=== PATIENT | female | born 1970 | race Hispanic/Latino ===

== ENCOUNTER 2018-12-16 12:29 | Observation (INO) | payer SELFPAY ==
[~2018-12-16 12:29] MED LIST: ISOVUE-370 76%-LOCM 1 ML ONE
--- NOTE | 2018-12-16 13:35 | RAD ---
EXAM: Chest 2 views: HISTORY: Cough and fever COMPARISON: None. FINDINGS: There is a normal-sized cardiomediastinal silhouette. There is no evidence of consolidation, mass, or pleural effusion. The bones are unremarkable. IMPRESSION: No evidence of acute cardiopulmonary disease
[2018-12-16 14:04] LABS: Bilirubin Negative (Negative); Blood, Urine Trace (Negative); Clarity CLOUDY (Clear); Glucose, Urine (Dipstick) >=1000 mg/dL (Negative); Leukocyte Small (Negative); Nitrite Negative (Negative); Protein, Urine (Dipstick) Trace mg/dL (Neg-Trace); Specific Gravity, Urine 1.035 (1.002-1.036); pH, Urine 5.5 (5.0-9.0)
[2018-12-16 14:07] LABS: #Eosinphils 0.1 thou/uL (0.0-0.7); #Lymphocytes 2.1 thou/uL (1.20-3.40); #Monocytes 0.7 thou/uL (0.11-0.59); #Neutrophils 6.7 thou/uL (1.40-6.50); %Basophils 0.4 % (0.0-1.0); %Eosinophils 0.6 % (0.0-10.0); %Monocytes 7.1 % (0.0-10.0); %Neutrophils 69.9 % (42.0-75.0); Mean Corpuscular HGB CONC 33.5 g/dL (32.0-36.0); Mean Corpuscular Hemoglobin 27.7 pg (27.0-31.0); Mean Corpuscular Volume 82.7 fL (78.0-98.0); Mean Platelet Volume 9.7 fL (7.4-10.4); Platelet Count 238 thou/uL (130-400); RBC Distribution Width 11.7 % (11.5-14.5); Red Blood Cell (RBC) Count 4.68 mill/uL (4.20-5.40); White Blood Cell (WBC) Count 9.6 thou/uL (4.8-10.8)
[2018-12-16 14:14] LABS: Pregnancy Test - Urine (BHCG) Negative (Negative); Pregu Control Background? CLEAR/WHITE (CLR/WHITE); Pregu Control Bar Appear? YES (CONTROL BAR); Specific Gravity 1.035 (1.002-1.036)
[2018-12-16 14:20] LABS: WBC/HPF 21-50 HPF (0-3)
[2018-12-16 14:21] LABS: Bacteria/HPF 4+ HPF (None Seen); Hyaline Casts/LPF NONE SEEN LPF (0-3 Hyaline); Yeast-All Forms 1+ HPF (None Seen)
[2018-12-16 14:32] LABS: ALT (SGPT) 12 U/L (8-55); AST (SGOT) 9 U/L (5-34); Albumin 3.8 g/dL (3.5-5.0); Alkaline Phosphatase 87 U/L (40-150); Anion Gap 14 mmol/L (10-20); BUN (Urea Nitrogen) 7 mg/dL (7.0-18.7); Bilirubin, Total 0.8 mg/dL (0.2-1.2); Calc. Creatinine Clearance 0 mL/min (70-130); Calcium 9.7 mg/dL (7.8-10.44); Carbon Dioxide 22 mmol/L (22-29); Chloride 97 mmol/L (98-107); Estimated GFR-MDRD 78; Globulin 4.9 g/dL (2.4-3.5); Glucose 338 mg/dL (70-105); Lipase 18 U/L (8-78); Potassium 3.4 mmol/L (3.5-5.1); Protein, Total 8.7 g/dL (6.0-8.3); Sodium 130 mmol/L (136-145)
[2018-12-16] MEDS ORDERED: Ondansetron PF 4 MG/2 ML Vial ONE (15:02)
[2018-12-16] MEDS ORDERED: cefTRIAXone\\ROCEPHIN 1 GM VIAL ONE (15:02)
[2018-12-16 15:41] LABS: Hemoglobin A1c 12.4 % (4.0-6.0)
--- NOTE | 2018-12-16 16:18 | CT ---
CT ABDOMEN AND PELVIS WITH IV CONTRAST: Date: 12/16/18 HISTORY: Abdominal pain, fever. FINDINGS: The lung bases are clear. The liver, spleen, pancreas, adrenal glands, and kidneys are normal. No calcified gallstones are note d. No free air, free fluid, or lymphadenopathy seen in the abdomen or pelvis. A normal appearing appe ndix is noted. Uterus and ovaries are present. There is a 2 cm left ovarian cyst with enhancing granulated margins consistent corpus luteal cyst. Th e aorta demonstrates a normal caliber. No osteolytic or osteoblastic lesions are noted. There are mil d degenerative changes in the spine. There is fecal material in the colon and rectum. IMPRESSION: 1. No evidence of appendicitis. 2. 2 cm corpus luteal cyst in left ovary. POS: OFF
[2018-12-16] MEDS ORDERED: diphenhydrAMINE 50 MG/ML VIAL ONE (16:54)
[2018-12-16] MEDS ORDERED: Metoclopramide HCl 10 MG/2 ML VIAL ONE (16:54)
--- NOTE | 2018-12-16 17:08 | PDOC.FPRHP ---
- History of Present Illness History of Present Illness: Mrs. Ramires presents with abdominal pain She reports for the past two weeks she has had body aches, rhinorrhea, cough, and polydipsia. She currently only complains of headache and abdominal pain. She denies dysuria, visual disturbance, seizure, weakness, syncope, or chest pain. She has never been told she has issues with her sugar or other medical history. ED Course: zofran, 1L NS CBC, CMP, Lipase, CT abd - History PMHx: none PSHx: CSx2 FHx: DMII Social: no TAD - Review of Systems General: reports: fever/chills, weight/appetite/sleep changes. denies: night sweats Eyes: denies: vision changes ENT: reports: nasal congestion, rhinorrhea Respiratory: reports: cough. denies: shortness of breath Cardiovascular: denies: chest pain, palpitation Gastrointestinal: reports: nausea, vomiting, abdominal pain. denies: diarrhea, constipation, GI bleeding Genitourinary: denies: incontinence, dysuria, polyuria Skin: denies: rashes, lesions Musculoskeletal: denies: pain, tenderness Neurological: denies: numbness, syncope Psychological: denies: anxiety - Vital signs 114/72, Pulse: 105, Resp: 18, Temp: 99.2 (Oral), Pain: 8, O2 sat: 99 on Room Air - Physical Exam Constitutional: NAD HEENT: normocephalic and atraumatic, grossly normal vision, grossly normal hearing Neck: trachea midline Heart: no edema Lungs: no retractions Abdomen: no masses/distention Musculoskeletal: normal structure, ROM grossly normal Neurological: no focal deficit Skin: no rash/lesions, good turgor Heme/Lymphatic: no unusual bruising or bleeding Psychiatric: normal mood and affect FMR H&P: Results - Labs Result Diagrams: 12/16/18 13:41 12/16/18 18:14 Lab results: WBC 9.6 thou/uL (4.8-10.8) 12/16/18 13:41 Hgb 13.0 g/dL (12.0-16.0) 12/16/18 13:41 Hct 38.7 % (36.0-47.0) 12/16/18 13:41 MCV 82.7 fL (78.0-98.0) 12/16/18 13:41 Plt Count 238 thou/uL (130-400) 12/16/18 13:41 Neutrophils % 69.9 % (42.0-75.0) 12/16/18 13:41 Sodium 130 mmol/L (136-145) L 12/16/18 13:41 Potassium 3.4 mmol/L (3.5-5.1) L 12/16/18 13:41 Chloride 97 mmol/L (98-107) L 12/16/18 13:41 Carbon Dioxide 22 mmol/L (22-29) 12/16/18 13:41 BUN 7 mg/dL (7.0-18.7) 12/16/18 13:41 Creatinine 0.79 mg/dL (0.6-1.1) 12/16/18 13:41 Glucose 338 mg/dL (70-105) H 12/16/18 13:41 Calcium 9.7 mg/dL (7.8-10.44) 12/16/18 13:41 Total Bilirubin 0.8 mg/dL (0.2-1.2) 12/16/18 13:41 AST 9 U/L (5-34) 12/16/18 13:41 ALT 12 U/L (8-55) 12/16/18 13:41 Alkaline Phosphatase 87 U/L (40-150) 12/16/18 13:41 Serum Total Protein 8.7 g/dL (6.0-8.3) H 12/16/18 13:41 Albumin 3.8 g/dL (3.5-5.0) 12/16/18 13:41 Lipase 18 U/L (8-78) 12/16/18 13:41 Urine Ketones 80 mg/dL (Negative) H 12/16/18 13:15 Urine Blood Trace (Negative) H 12/16/18 13:15 Urine Nitrite Negative (Negative) 12/16/18 13:15 Ur Leukocyte Esterase Small (Negative) H 12/16/18 13:15 Urine RBC 4-6 HPF (0-3) 12/16/18 13:15 Urine WBC 21-50 HPF (0-3) H 12/16/18 13:15 Ur Squamous Epith Cells 4-6 HPF (0-3) H 12/16/18 13:15 Urine Bacteria 4+ HPF (None Seen) H 12/16/18 13:15 FMR H&P: A/P - Problem List (1) DMII (diabetes mellitus, type 2) Current Visit: Yes Status: Acute (2) Migraine Current Visit: Yes Status: Acute Code(s): G43.909 - MIGRAINE, UNSP, NOT INTRACTABLE, WITHOUT STATUS MIGRAINOSUS - Plan DMII - Hyperglycemia on admission, no acidosis or history DMII, no conern for DKA - Nph 15, Humalog 5 now, begin 70/30 tomorrow pending overnight sugar - mild sliding scale - VBG pending tachycardia - most likely hypovolemic - s/p one liter, additional now Viral URI - Symptomatic control, no concern for bacterial infection - IVF 120 w/ KCl for 1 bag, follow with LR Migraine - Migraine protocol Benadryl and reglan initiated in the ED pcp: none code: full ppx; [facility] dispo: DC tomorrow with improved glycemic control FMR H&P: Upper Level - Pertinent history 48 y/o F with no known PMHx presents due to cough, congestion, abdominal pain, nausea. She reports these symptoms have been going on the past several days. Denies fevers, chills, dysuria. She has not been to a doctor in over 11 years. She reports polydipsia, denies polyuria. - Pertinent findings Vitals: BP 114/72, HR 105, RR 18, Temp 99.2, O2 sat 99% on RA PE: Gen - alert, oriented, resting comfortably in bed HEENT: MMM, EOMI CV: tachycardic, regular rhythm Resp: CTAB Abd: soft, mildly tender to palpation - Plan Date/Time: 12/16/18 1706 I, Giulia Horn MD, PGY-2, have evaluated this patient and agree with findings/ plan as outlined by pharmacist intern resident. Pertinent changes/additions are listed here. Hyperglycemia 2/2 New onset DM2 Patient no signs of DKA or HHS. Mildly tachycardic. A1c elevated. -Will give 1L fluids followed by maintenance. -Give 5U humalog and 15U NPH and then start 70/30 tomorrow -Will start pt on metformin -Will order VBG Asymptomatic bacteruria Patient with no symptoms of UTI at this time. s/p 1g Rocephin in ED -No need to continue abx at this time [place] infection -Will give one dose diflucan, likely 2/2 hyperglycemia Addendum - Attending - Attending Attestation Date/Time: 12/17/18 8033 I personally evaluated the patient and discussed the management with Dr. Hdz. I agree with the History, Examination, Assessment and Plan documented above with any addition or exceptions noted below.
[2018-12-16] MEDS ORDERED: Dextrose 50% Abboject 50 ML SYRINGE SLOW IVP PRN (17:12)
[2018-12-16] MEDS ORDERED: Ondansetron ODT 4 MG TAB PO PRN (17:12)
[2018-12-16] MEDS ORDERED: Acetaminophen 650 MG Suppository PR PRN (17:12)
[2018-12-16] MEDS ORDERED: Acetaminophen 325 MG TAB PO PRN (17:12)
[2018-12-16] MEDS ORDERED: Ondansetron PF 4 MG/2 ML Vial IVP PRN (17:12)
[2018-12-16] MEDS ORDERED: HumaLOG 300 UNITS/3 ML VIAL SC PRN ×2 (17:12)
[2018-12-16] MEDS ORDERED: Dextrose 5% in Water 1,000 ML IV PRN (17:12)
[2018-12-16] MEDS ORDERED: HumaLOG 300 UNITS/3 ML VIAL SC SCH (17:30)
[2018-12-16] MEDS ORDERED: Potassium Chloride 20 MEQ in Lactated Ringer's 1,000 ML IV SCH (17:30)
[2018-12-16] MEDS ORDERED: NPH, Human Insulin Isophane 300 UNIT/3 ML VIAL SC SCH (17:30)
[2018-12-16 18:29] LABS: Actual Bicarbonate (HCO3v) 21 mEq/L (22-28); Analyzer IN Cardio ER; Base Excess -1.3 mEq/L (-2.0 to +3.0); Calcium, Ionized 1.01 mmol/L (1.16-1.32); Chloride (ABG LAB) 99 mmol/L (98-106); Hemoglobin (Hb) 13.7 g/dL (11.7-16.0); Potassium - ABG Lab 3.56 mmol/L (3.70-5.30); Sodium 130.1 mmol/L (133-146)
[2018-12-16 19:13] LABS: Anion Gap 17 mmol/L (10-20); BUN (Urea Nitrogen) 7 mg/dL (7.0-18.7); Calc. Creatinine Clearance 0 mL/min (70-130); Calcium 9.3 mg/dL (7.8-10.44); Carbon Dioxide 19 mmol/L (22-29); Chloride 97 mmol/L (98-107); Estimated GFR-MDRD 88; Glucose 245 mg/dL (70-105); Potassium 3.6 mmol/L (3.5-5.1); Sodium 129 mmol/L (136-145)
[2018-12-16] MEDS: guaiFENesin/DM ER PO SCH (20:42)
[2018-12-17] MEDS: Lactated Ringer's 1,000 ML IV SCH ×2 (00:19→03:27)
[2018-12-17] MEDS ORDERED: metFORMIN 500 MG TAB PO SCH (08:00)
--- NOTE | 2018-12-17 08:22 | PDOC.FM ---
- Subjective Subjective: Patient denies acute complaints. Reports mild nasal congestion. Denies headache , chest pain, abdominal pain. - Objective Vital Signs & Weight: Vital Signs (12 hours) Temp Pulse Resp BP Pulse Ox 12/17/18 07:41 98.1 F 91 20 109/71 96 12/17/18 04:00 98.6 F 97 18 111/71 99 12/17/18 00:00 98.9 F 102 H 16 112/71 97 Weight Weight 45.9 kg I&O: 12/16/18 12/17/18 12/18/18 06:59 06:59 06:59 Intake Total 3915 Balance 3915 Result Diagrams: 12/16/18 13:41 12/16/18 18:14 Dx/Plan (1) DMII (diabetes mellitus, type 2) Status: Acute (2) Migraine Code(s): G43.909 - MIGRAINE, UNSP, NOT INTRACTABLE, WITHOUT STATUS MIGRAINOSUS Status: Acute - Plan Plan: DMII - Hyperglycemia on admission, no acidosis or history DMII, no conern for DKA - VBG pending - begin novolog 70/30 20u today, metformin - mild sliding scale tachycardia - resolved Viral URI - Symptomatic control, no concern for bacterial infection - PO hydration Migraine - Migraine protocol Benadryl and reglan initiated in the ED - resolved pcp: none code: full ppx; [facility] dispo: DC today Addendum - Attending - Attending Attestation Date/Time: 12/17/18 0917 I personally evaluated the patient and discussed the management with Dr. Hdz. I agree with the History, Examination, Assessment and Plan documented above with any addition or exceptions noted below. Patient doing well this morning. Blood sugars improved with Metformin and SQ insulin initiation. She will need further mgmt outpatient. She has some URI symptoms that can be managed with OTC meds. Stable for discharge. No evidence for HHS or DKA on admission and continues to be that way. Needs follow up with primary care in outpatient setting and we will provider her with information regarding who she can follow up with.
[2018-12-17] MEDS ORDERED: HumuLIN 70/30 (300 UNITS/3 ML VIAL) SC SCH (09:00)
[2018-12-17] MEDS: guaiFENesin/DM ER PO SCH (09:37)
[2018-12-17 10:55] VITALS: BP 109/73; TEMP 98.3
[2018-12-17 13:29] VITALS: BMI 14.1
--- NOTE | 2018-12-18 04:59 | DIS ---
DATE OF ADMISSION: 12/16/2018 DATE OF DISCHARGE: 12/17/2018 PROCEDURES: None. CONSULTS: None. DISCHARGE MEDICATIONS: 1. Mucinex DM one tab p.o. q.12 hours p.r.n. 2. Humulin 70/30, 20 units subcutaneous b.i.d. 3. Metformin 500 mg p.o. b.i.d. DISCHARGE DIAGNOSIS: Diabetes mellitus type 2. HISTORY OF PRESENT ILLNESS/HOSPITAL COURSE: Ms. Ramires is a 48-year-old female who reported to the emergency department complaining of abdominal pain and headache. In the emergency department, she was found to have a blood glucose level of around 300. No acidosis. Decreased bicarb was noted. Additionally, the patient was found to have asymptomatic bacteriuria and headache with history of migraines which she has had in the past. The patient was given Zofran and 1 L normal saline in the emergency room. Upon arrival to the floor, insulin was started, migraine protocol was begun and metformin was started as well. The patient's blood sugars quickly normalized. Migraine resolved. The patient was deemed stable for discharge home with close outpatient followup. DISCHARGE INSTRUCTIONS: Location: Home. Diet: Diabetic. Activity: As tolerated. Followup: Follow up with PCP, new provider, Dr. Riojas at [facility] on December 20. Job ID: [id number]
== END 2018-12-17 15:40 | disposition home or self-care (01) ==
LOC: ERS 12:29 → EDBD 12:29 → T4-B 18:56 → INTOOBSV 18:56
PROVIDERS: ADMIT Emergency Medicine; ATTEND Emergency Medicine
DX: E11.65 Type 2 diabetes mellitus with hyperglycemia (principal); R10.9 Unspecified abdominal pain; G43.909 Migraine, unspecified, not intractable, without status migrainosus; J06.9 Acute upper respiratory infection, unspecified
CPT/HCPCS: 36415; 36416; 71046; 74177; 80053; 81003; 81015; 81025; 82805; 83036; 83690; 85025; 87804; 96361; 96365; 96366; 96367; 96375; G0378; J0696; J1200; J1815; J2405; J2765; J3480; J7120; Q9966